=== PATIENT | male | born 1990 | race African-American/Black ===

== ENCOUNTER 2018-09-23 08:33 | Emergency (ER) | payer BC ==
[~2018-09-23] VITALS: Ht 167.6 cm; Wt 83.9 kg
[2018-09-23 09:00] VITALS: BP 145/80
[2018-09-23] MEDS ORDERED: NAPROXEN 500 MG TABLET PO STA (09:08)
[2018-09-23] MEDS ORDERED: HYDROcodone/APAP 5/325MG 1 TAB TABLET PO ONE (09:15)
[2018-09-23] MEDS ORDERED: predniSONE 10 MG TABLET PO ONE (09:15)
[2018-09-23] MEDS ORDERED: diazePAM 5 MG TABLET PO ONE (09:15)
--- NOTE | 2018-09-23 09:38 | RAD ---
Lumbar spine, 3 views, 09/23/2018: HISTORY: Back pain, injury There are small assessory ribs at L1. No lumbar fracture or dislocation is identified. The intervertebral disc spaces are well-maintained. The paraspinous soft tissues are unremarkable. IMPRESSION: No acute lumbar spine abnormality is detected. Electronically signed by: Naseem Lizarraga MD (09/23/2018 9:35 AM) [facility]
[2018-09-23] MEDS ORDERED: CYCL10TA2 PO (09:54)
[2018-09-23] MEDS ORDERED: HYDR-3164 PO (09:54)
[2018-09-23] MEDS ORDERED: METH4TAB2 PO (09:54)
[2018-09-23] MEDS ORDERED: NAPR-514 PO (09:54)
--- NOTE | 2018-09-23 09:54 | PHYS DOC ---
Past Medical History Past Medical History: No Pertinent History Alcohol Use: None Drug Use: None Adult General Chief Complaint Chief Complaint: BACK PAIN OR INJURY HPI HPI Patient is a 28 year old male witha medical history who presents to the ED today complaining of 10 out of 10 right low back pain radiating to the right lower extremity described as sharp and intermittent worse on sitting down that began 5 days ago after he attempted to lift a lawnmower that was stuck in the mud. This was a push on lawnmower. Patient states he has tried [id number] remedies with no relief. Denies any loss of bowel bladder function. Denies any numbness or tingling to bilateral lower extremities. Review of Systems Review of Systems Constitutional: Denies fever or chills [] GI: Denies abdominal pain, nausea, vomiting, bloody stools or diarrhea [] : Denies dysuria or hematuria [] Musculoskeletal: Reports right low back pain Integument: Denies rash or skin lesions [] Neurologic: Denies headache, focal weakness or sensory changes [] All other systems were reviewed and found to be within normal limits, except as documented in this note. Current Medications Current Medications Current Medications Medications (Trade) Dose Ordered Sig/Margaret Start Time Stop Time Status Last Admin Dose Admin Acetaminophen/ Hydrocodone Bitart (Lortab 5/325) 2 tab 1X ONCE 09/23/18 09:15 09/23/18 09:16 DC 09/23/18 09:19 2 TAB Diazepam (Valium) 5 mg 1X ONCE 09/23/18 09:15 09/23/18 09:16 DC 09/23/18 09:19 5 MG Naproxen (Naprosyn) 500 mg 1X STAT 09/23/18 09:08 09/23/18 09:12 DC 09/23/18 09:19 500 MG Prednisone (Prednisone) 50 mg 1X ONCE 09/23/18 09:15 09/23/18 09:16 DC 09/23/18 09:19 50 MG Allergies Allergies Allergies Coded Allergies Type Severity Reaction Last Updated Verified No Known Drug Allergies 09/23/18 No Physical Exam Physical Exam Constitutional: Well developed, well nourished, no acute distress, non-toxic appearance. [] Abdomen: Bowel sounds normal, soft, no tenderness, no masses, no pulsatile masses. [] Skin: Warm, dry, no erythema, no rash. [] Back: Diffuse paraspinal muscle tenderness of the right lower lumbar spine worse on the right SI joint, no midline lumbar spine tenderness, no CVA tenderness. Positive straight leg to the right lower extremity at approximately 30 negative left leg straight raises Extremities: No tenderness, no cyanosis, no clubbing, ROM intact, no edema. [] Neurologic: Alert and oriented X 3, normal motor function, normal sensory function, no focal deficits noted. [] Psychologic: Affect normal, judgement normal, mood normal. [] Current Patient Data Vital Signs Vital Signs Date Time Temp Pulse Resp B/P (MAP) Pulse Ox O2 Delivery O2 Flow Rate FiO2 09/23/18 09:19 20 99 Room Air 09/23/18 09:00 98.1 59 145/80 (101) 98.1 EKG EKG [] Radiology/Procedures Radiology/Procedures []PROCEDURE: LUMBAR SPINE 2-3V Lumbar spine, 3 views, 09/23/2018: HISTORY: Back pain, injury There are small assessory ribs at L1. No lumbar fracture or dislocation is identified. The intervertebral disc spaces are well-maintained. The paraspinous soft tissues are unremarkable. IMPRESSION: No acute lumbar spine abnormality is detected. Electronically signed by: Naseem Lizarraga MD (09/23/2018 9:35 AM) [facility] DICTATED and SIGNED BY: NASEEM LIZARRAGA MD DATE: 09/23/18 0935 Course & Med Decision Making Course & Med Decision Making Pertinent Labs and Imaging studies reviewed. (See chart for details) This is a 28-year-old male patient presenting to the ED today with right low back pain that began 5 days ago after lifting a lawnmower, pain radiating to the right lower extremity. No cauda equina syndrome syndrome symptoms. Lumbar spine x-rays are negative. patient was discharged to home. Heat recommended to his lumbar spine. Given prescription for pain medicine and some muscle relaxers as well as anti-inflammatories. Follow-up with his pcp in 1-2 weeks, provided return precautions and discharged in stable condition. Dragon Disclaimer Dragon Disclaimer This electronic medical record was generated, in whole or in part, using a voice recognition dictation system. Departure Departure Impression: Primary Impression: Acute lumbosacral myofascial strain Additional Impression: Sciatica of right side Disposition: HOME, SELF-CARE Condition: STABLE Referrals: NO PCP (PCP) follow up with your doctor in 1-2 weeks Patient Instructions: Lumbosacral Strain, Sciatica with [facility] Additional Instructions: You were evaluated in the emergency room for back pain that is suspicious for lumbosacral strain please, apply heat to your low back take the prescribed medications as ordered. Follow-up with your own doctor in 1-2 weeks, come back to the ED at any point symptoms worsen. Scripts Naproxen (NAPROXEN) 500 Mg Tablet 1 TAB PO BID, #60 TAB 1 Refill Prov: GEOFF CAO APRN 09/23/18 Cyclobenzaprine Hcl (CYCLOBENZAPRINE HCL) 10 Mg Tablet 1 TAB PO TID, #30 TAB Prov: GEOFF CAO APRN 09/23/18 Methylprednisolone (MEDROL) 4 Mg Tab.ds.pk 1 PKG PO UD, #1 PKG Prov: GEOFF CAO APRN 09/23/18 Hydrocodone/Apap 5-325 (NORCO 5-325 TABLET) 1 Each Tablet 1-2 TAB PO Q4-6HRS, #20 TAB Prov: GEOFF CAO APRN 09/23/18 Problem Qualifiers Primary Impression: Acute lumbosacral myofascial strain Encounter type: initial encounter Qualified Codes: S39.012A - Strain of muscle, fascia and tendon of lower back, initial encounter GEOFF CAO APRN September 23, 2018 09:54
== END 2018-09-23 10:10 | disposition home or self-care (01) ==
LOC: ER 08:33
DX: S39.012A Strain of muscle, fascia and tendon of lower back, initial encounter (principal); M54.41 Lumbago with sciatica, right side; X50.0XXA Overexertion from strenuous movement or load, initial encounter; Y93.89 Activity, other specified; Y92.89 Other specified places as the place of occurrence of the external cause; Y99.8 Other external cause status
CPT/HCPCS: 72100; 99284; J7512